=== PATIENT | female | born 1960 | race Asian ===

== ENCOUNTER 2016-08-21 15:41 | Emergency (ER) | payer BC ==
[2016-08-21 15:47] VITALS: RESP 18
--- NOTE | 2016-08-21 15:59 | CPEKG ---
Heart Rate: 77 RR Interval: 779 P-R Interval: 192 QRSD Interval: 104 QT Interval: 408 QTC Interval: 462 P [place]: 74 QRS [place]: 66 T Wave [place]: 12 EKG Severity - NORMAL ECG - EKG Impression: SINUS RHYTHM Electronically Signed By: Juventino Lucero 21-Aug-2016 16:18:02
[2016-08-21] MEDS ORDERED: ASPIRIN 81 MG CHEWABLE TAB PO ONE (16:16)
[2016-08-21] MEDS ORDERED: NS 1,000 ML IV ONE (16:16)
[2016-08-21 16:22] LABS: % IMMATURE GRANULYOCYTES 0.2 % (0.0-1.1); ABSOLUTE IMMATURE GRANULOCYTES 0.01 10^3/uL (0.00-0.10); ADD DIFF? NO; ADD MORPH? NO; ADD SCAN? NO; ATYPICAL LYMPHOCYTE FLAG 10 (0-99); FRAGMENT RBC FLAG 0 (0-99); HEMATOCRIT 40.4 % (38.0-47.0); HEMOGLOBIN 14.1 g/dL (12.6-16.3); LEFT SHIFT FLG 0 (0-99); LIPEMIA HEMOLYSIS FLAG 90 (0-99); MEAN CELL HEMOGLOBIN 32.5 pg (27.9-34.1); MEAN CELL HEMOGLOBIN CONCENTR. 34.9 g/dL (32.4-36.7); MEAN CELL VOLUME 93.1 fL (81.5-99.8); MEAN PLATELET VOLUME 8.7 fL (8.7-11.7); PLATELET CLUMPS FLAG 0 (0-99); PLATELET COUNT 224 10^3/uL (150-400); RED BLOOD CELL COUNT 4.34 10^6/uL (4.18-5.33)
[2016-08-21 16:28] LABS: ANION GAP 12 mEq/L (8-16); CALCIUM 9.7 mg/dL (8.5-10.4); CARBON DIOXIDE 23 mEq/l (22-31); CHLORIDE 104 mEq/L (97-110); CREATININE 0.6 mg/dL (0.6-1.0); GLOMERULAR FILTRATION RATE > 60; GLUCOSE 104 mg/dL (70-100); SODIUM 139 mEq/L (134-144)
[2016-08-21 16:41] LABS: TROPONIN I < 0.012 ng/mL (0-0.034)
--- NOTE | 2016-08-21 16:45 | EDPHY ---
H & P Time Seen by Provider: 08/21/16 16:07 HPI/ROS: CHIEF COMPLAINT: Chest pain HISTORY OF PRESENT ILLNESS: Patient is a 56-year-old woman who does developed chest pain while walking around a [employer] today at 2:30 p.m.. Of note no previous cardiac history. Just arrived on a 12 hour plane flight back from [facility] 5 days ago. Pain is located on the left side upper chest does not radiate slightly worse with a deep breath. Of note she has had mild headache and chills for the last 3 days. She has had intermittent right leg pain behind her knee for the last 2 days. REVIEW OF SYSTEMS: Eye: no change in vision ENT: no sore throat Cardiac: HPI Pulmonary: no cough or SOB Abdomen: no vomiting, diarrhea, abdominal pain Musculoskeletal: no back pain Skin: no rash Neuro: no headache Constitutional: HPI : no urinary symptoms A comprehensive 10 point review of systems is otherwise negative aside from elements mentioned in the history of present illness. PAST MEDICAL HISTORY: Negative Social history: Nonsmoker, recent travel as above. General Appearance: Alert and conversant, cooperative. Eyes: No scleral icterus. ENT, Mouth: Normal mucous membranes. Respiratory: Normal respiratory effort, breath sounds equal, lungs are clear to auscultation. Cardiovascular: Regular rate and rhythm. Gastrointestinal: Abdomen is soft and non tender. Neurological: Alert and oriented x3. Normally conversant. Face symmetric, normal movement and sensation in all extremities. Skin: Warm and dry, no rashes. Musculoskeletal: No peripheral edema and no joint swelling. No calf tenderness. No chest wall tenderness. Psychiatric: Not agitated. Emergency Department course/MDM: Patient is afebrile. Plan for D-dimer, chest x-ray and troponin. EKG does not show acute ischemic changes. 1712: Results discussed including D-dimer 1.56. CT discussed and consented. 1803: Results discussed, plan for right leg ultrasound repeat troponin discharge with symptomatic care if negative. Warned needs [address] follow-up. With atypical pleuritic chest pain not exertional with negative serial troponin and normal EKG I think acute coronary syndrome or [place] is unlikely. Smoking Status: Never smoked Constitutional: Initial Vital Signs Temperature (C) 36.8 C 08/21/16 15:41 Heart Rate 75 08/21/16 15:41 Respiratory Rate 18 08/21/16 15:41 Blood Pressure 144/82 H 08/21/16 15:41 O2 Sat (%) 95 08/21/16 15:41 O2 Delivery Mode Room Air O2 (L/minute) 1 Allergies/Adverse Reactions: No Known Allergies Allergy (Unverified 08/21/16 15:47) Home Medications: Medication Instructions Recorded NK [No Known Home Meds] 08/21/16 Medical Decision Making - Diagnostics EKG Interpretation: 12-lead EKG interpreted by me; official reading is in trace master. My interpretation is sinus rhythm rate 77 no acute ischemic changes. Imaging: CT pulmonary arteriogram interpreted by me and reviewed with Dr. Kulwant Sawyer at 5:53 p.m. shows 7 mm left upper lung nodule, no pulmonary embolism, otherwise negative. 1839: right lower extremity ultrasound negative for DVT per Dr. Sawyer Differential Diagnosis: Differential diagnosis considered for chest pain including but not limited to myocardial ischemia, aortic dissection, pericarditis, pulmonary embolus, chest wall pain, pleural inflammation and pulmonary infectious causes. Consult/Admit Bed Type: [facility] re: CT f/u at 1930 - Data Points Laboratory Results: Laboratory Results 08/21/16 15:55 08/21/16 15:55 08/21/16 08/21/16 08/21/16 18:15 15:55 15:55 WBC RBC Hgb Hct MCV MCH MCHC RDW Plt Count MPV Neut % (Auto) Lymph % (Auto) [place] % (Auto) Eos % (Auto) Baso % (Auto) Nucleat RBC Rel Count Absolute Neuts (auto) Absolute Lymphs (auto) Absolute Monos (auto) Absolute Eos (auto) Absolute Basos (auto) Absolute Nucleated RBC Immature Gran % Immature Gran # D-Dimer 1.56 ug/mLFEU H ug/mLFEU (0.00-0.50) Sodium 139 mEq/L mEq/L (134-144) Potassium 4.0 mEq/L mEq/L (3.5-5.2) Chloride 104 mEq/L mEq/L (97-110) Carbon Dioxide 23 mEq/l mEq/l (22-31) Anion Gap 12 mEq/L mEq/L (8-16) BUN 15 mg/dL mg/dL (7-23) Creatinine 0.6 mg/dL mg/dL (0.6-1.0) Estimated GFR > 60 Glucose 104 mg/dL H mg/dL (70-100) Calcium 9.7 mg/dL mg/dL (8.5-10.4) Troponin I < 0.012 ng/mL ng/mL < 0.012 ng/mL ng/mL (0-0.034) (0-0.034) 08/21/16 15:55 WBC 5.10 10^3/uL 10^3/uL (3.80-9.50) RBC 4.34 10^6/uL 10^6/uL (4.18-5.33) Hgb 14.1 g/dL g/dL (12.6-16.3) Hct 40.4 % % (38.0-47.0) MCV 93.1 fL fL (81.5-99.8) MCH 32.5 pg pg (27.9-34.1) MCHC 34.9 g/dL g/dL (32.4-36.7) RDW 14.0 % % (11.5-15.2) Plt Count 224 10^3/uL 10^3/uL (150-400) MPV 8.7 fL fL (8.7-11.7) Neut % (Auto) 74.0 % % (39.3-74.2) Lymph % (Auto) 17.1 % % (15.0-45.0) [place] % (Auto) 6.7 % % (4.5-13.0) Eos % (Auto) 1.2 % % (0.6-7.6) Baso % (Auto) 0.8 % % (0.3-1.7) Nucleat RBC Rel Count 0.0 % % (0.0-0.2) Absolute Neuts (auto) 3.78 10^3/uL 10^3/uL (1.70-6.50) Absolute Lymphs (auto) 0.87 10^3/uL L 10^3/uL (1.00-3.00) Absolute Monos (auto) 0.34 10^3/uL 10^3/uL (0.30-0.80) Absolute Eos (auto) 0.06 10^3/uL 10^3/uL (0.03-0.40) Absolute Basos (auto) 0.04 10^3/uL 10^3/uL (0.02-0.10) Absolute Nucleated RBC 0.00 10^3/uL 10^3/uL (0-0.01) Immature Gran % 0.2 % % (0.0-1.1) Immature Gran # 0.01 10^3/uL 10^3/uL (0.00-0.10) D-Dimer Sodium Potassium Chloride Carbon Dioxide Anion Gap BUN Creatinine Estimated GFR Glucose Calcium Troponin I Medications Given: Discontinued Medications Aspirin (Aspirin) 324 mg PO EDNOW ONE Stop: 08/21/16 16:17 Last Admin: 08/21/16 16:32 Dose: 324 mg Sodium Chloride (Ns) 1,000 mls @ 0 mls/hr IV ONCE ONE PRN Reason: Wide Open Stop: 08/21/16 16:17 Last Admin: 08/21/16 16:32 Dose: 1,000 mls Departure - Departure Disposition: Home, Routine, Self-Care Clinical Impression: Chest pain Qualifiers: Chest pain type: unspecified Qualified Code(s): R07.9 - Chest pain, unspecified Condition: Good Instructions: Chest Pain (ED) Additional Instructions: You need repeat CT scan in 6 months to evaluate left upper lung nodule seen on scan. No pneumonia or pulmonary embolism or blood clot seen on CT. Referrals: Mustapha Martínez MD [Primary Care Provider] - As per Instructions (Please follow- up with your primary care physician next week.)
[2016-08-21] MEDS ORDERED: IOPAMIDOL (ISOVUE 370) 100 ML BTL IV ONE (17:20)
[2016-08-21 19:25] VITALS: BP 143/85; PULSE 66; TEMP 97.7; O2SAT 100
== END 2016-08-21 19:24 | disposition home or self-care (01) ==
DX: R07.9 Chest pain, unspecified (principal)
CPT/HCPCS: Q9967

== ENCOUNTER → 2016-09-11 | Outpatient (CLI) | payer BC | LOC: BMCIMAGING 14:57 | PROVIDERS: ATTEND Emergency Medicine | DX: J40 Bronchitis, not specified as acute or chronic (principal) ==

== ENCOUNTER → 2017-06-24 | Outpatient (CLI) | payer BC | LOC: FIMAGING 14:42 | PROVIDERS: ATTEND Internal Medicine | DX: Z09 Encounter for follow-up examination after completed treatment for conditions other than malignant neoplasm (principal); R91.1 Solitary pulmonary nodule ==

== ENCOUNTER → 2018-06-06 | Outpatient (CLI) | payer BC | LOC: BMCIMAGING 11:46 | PROVIDERS: ATTEND Physician Assistant | DX: M19.011 Primary osteoarthritis, right shoulder (principal) ==